=== PATIENT | male | born 1995 | race Caucasian/White ===

== ENCOUNTER 2017-10-17 20:00 | Emergency (ER) | payer BC, MEDICAID ==
[~2017-10-17] VITALS: Ht 170.2 cm; Wt 107.5 kg
[2017-10-17 20:19] VITALS: Ht 170.2 cm; Wt 107.5 kg
[2017-10-17 21:16] VITALS: BP 122/79
== END 2017-10-17 21:17 | disposition home or self-care (01) ==
LOC: ED 20:00
DX: Z00.01 Encounter for general adult medical examination with abnormal findings (principal); R11.10 Vomiting, unspecified

== ENCOUNTER 2017-10-17 23:40 | Emergency (ER) | payer BC, MEDICAID ==
[2017-10-18 00:39] LABS: CALCIUM 7.9 mg/dL (8.5-10.1); CARBON DIOXIDE 26.9 mmol/L (21-32); CHLORIDE SERUM 101 mmol/L (98-107); CREATININE SERUM 0.8 mg/dL (0.7-1.3); GFR1 > 60 mL/min; GLUCOSE SERUM 105 mg/dL (74-106); POTASSIUM SERUM 3.7 mmol/L (3.5-5.1); SODIUM SERUM 137 mmol/L (136-145)
[2017-10-18 00:43] LABS: ALBUMIN 3.8 g/dL (3.4-5.0); ALKALINE PHOSPHATASE 88 U/L (46-116); ALT/SGPT 70 U/L (16-63); BILIRUBIN TOTAL 0.1 mg/dL (0.20-1.00); TOTAL PROTEIN, SERUM 7.3 g/dL (6.4-8.2)
[2017-10-18 00:44] LABS: BASOPHIL % 0.3 % (0-2); PLATELET COUNT 350 x10^3mcL (130-400)
[2017-10-18 01:00] LABS: AST/SGOT 28 U/L (15-37)
[2017-10-18 01:02] LABS: RED CELL DISTRIBUTION WIDTH 14.6 % (11.5-14.5)
[2017-10-18 01:10] LABS: AMPHETAMINE QUAL UR NONE DETECTED (See below)
[2017-10-18 05:55] VITALS: BP 133/79
== END 2017-10-18 05:58 | disposition home or self-care (01) ==
LOC: ED 23:40
PROVIDERS: Emergency Medicine
DX: F19.10 Other psychoactive substance abuse, uncomplicated (principal); R45.851 Suicidal ideations
CPT/HCPCS: 36415; G0480

== ENCOUNTER 2017-11-03 16:24 | Emergency (ER) | payer BC, MEDICAID ==
[~2017-11-03] VITALS: Ht 170.2 cm; Wt 112.0 kg
[2017-11-03 16:47] VITALS: BP 113/49; Ht 170.2 cm; Wt 112.0 kg
[2017-11-03 18:32] LABS: microscopic required? NO
[2017-11-03 18:34] LABS: CALCIUM 8.9 mg/dL (8.5-10.1); CARBON DIOXIDE 31.4 mmol/L (21-32); CHLORIDE SERUM 102 mmol/L (98-107); CREATININE SERUM 0.9 mg/dL (0.7-1.3); GFR1 > 60 mL/min; GLUCOSE SERUM 87 mg/dL (74-106); POTASSIUM SERUM 3.7 mmol/L (3.5-5.1); SODIUM SERUM 138 mmol/L (136-145)
[2017-11-03 18:35] LABS: UA SPECIFIC GRAVITY <=1.005 (1.005-1.035); urine erythrocyte NEGATIVE (NEGATIVE)
[2017-11-03 18:39] LABS: ALKALINE PHOSPHATASE 78 U/L (46-116); ALT/SGPT 91 U/L (16-63); AST/SGOT 29 U/L (15-37)
[2017-11-03 18:43] LABS: AMPHETAMINE QUAL UR NONE DETECTED (See below)
[2017-11-03 18:50] LABS: RED CELL DISTRIBUTION WIDTH 13.1 % (11.5-14.5)
[2017-11-03 19:00] LABS: BASOPHIL % 0.3 % (0-2); PLATELET COUNT 375 x10^3mcL (130-400)
== END 2017-11-03 19:10 | disposition home or self-care (01) ==
LOC: ED 16:24
PROVIDERS: Emergency Medicine
DX: D72.829 Elevated white blood cell count, unspecified (principal); R11.10 Vomiting, unspecified; F17.210 Nicotine dependence, cigarettes, uncomplicated; F20.9 Schizophrenia, unspecified; F32.9 Major depressive disorder, single episode, unspecified; Z71.6 Tobacco abuse counseling
CPT/HCPCS: 36415; 99406; G0480; Q0162

== ENCOUNTER 2018-09-07 18:51 | Emergency (ER) | payer MEDICAID ==
[~2018-09-07] VITALS: Ht 170.2 cm; Wt 103.0 kg
[2018-09-07 18:54] VITALS: Ht 170.2 cm; Wt 103.0 kg
[2018-09-07 20:33] VITALS: BP 143/97
== END 2018-09-07 20:33 | disposition home or self-care (01) ==
LOC: ED 18:51
DX: F20.0 Paranoid schizophrenia (principal); F12.90 Cannabis use, unspecified, uncomplicated; F15.90 Other stimulant use, unspecified, uncomplicated; F32.9 Major depressive disorder, single episode, unspecified; F17.210 Nicotine dependence, cigarettes, uncomplicated

== ENCOUNTER 2018-09-12 20:59 | Emergency (ER) | payer MEDICAID ==
[~2018-09-12] VITALS: Ht 170.2 cm; Wt 103.9 kg
[2018-09-12 21:51] VITALS: BP 146/88; Ht 170.2 cm; Wt 103.9 kg
== END 2018-09-13 01:32 | disposition left against medical advice (07) ==
LOC: ED 20:59
DX: Z53.21 Procedure and treatment not carried out due to patient leaving prior to being seen by health care provider (principal)

== ENCOUNTER 2018-09-14 22:21 | Emergency (ER) | payer MEDICAID ==
[~2018-09-14] VITALS: Ht 170.2 cm; Wt 107.0 kg
[2018-09-14 23:10] VITALS: Ht 170.2 cm; Wt 107.0 kg
[2018-09-15 00:37] VITALS: BP 125/76
== END 2018-09-15 00:37 | disposition home or self-care (01) ==
LOC: ED 22:21
DX: R44.0 Auditory hallucinations (principal); F41.9 Anxiety disorder, unspecified; F32.9 Major depressive disorder, single episode, unspecified; F17.210 Nicotine dependence, cigarettes, uncomplicated

== ENCOUNTER 2018-09-17 20:06 | Emergency (ER) | payer MEDICAID ==
[~2018-09-17] VITALS: Ht 170.2 cm; Wt 105.7 kg
[2018-09-17 20:19] VITALS: Ht 170.2 cm; Wt 105.7 kg
[2018-09-17 23:06] VITALS: BP 116/63
== END 2018-09-17 23:06 | disposition home or self-care (01) ==
LOC: ED 20:06
DX: R44.0 Auditory hallucinations (principal); R44.1 Visual hallucinations; F32.9 Major depressive disorder, single episode, unspecified; F17.210 Nicotine dependence, cigarettes, uncomplicated; Z76.0 Encounter for issue of repeat prescription; Z98.890 Other specified postprocedural states

== ENCOUNTER 2018-09-21 20:23 | Emergency (ER) | payer MEDICAID ==
[~2018-09-21] VITALS: Ht 170.2 cm; Wt 103.0 kg
[2018-09-21 20:30] VITALS: Ht 170.2 cm; Wt 103.0 kg
[2018-09-22 06:12] VITALS: BP 111/62
== END 2018-09-22 06:12 | disposition home or self-care (01) ==
LOC: ED 20:23
DX: F15.129 Other stimulant abuse with intoxication, unspecified (principal); F19.10 Other psychoactive substance abuse, uncomplicated; F32.9 Major depressive disorder, single episode, unspecified; F20.9 Schizophrenia, unspecified
CPT/HCPCS: J2060

== ENCOUNTER 2018-09-26 17:13 | Emergency (ER) | payer MEDICAID ==
[~2018-09-26] VITALS: Ht 170.2 cm; Wt 104.3 kg
[2018-09-26 17:24] VITALS: Ht 170.2 cm; Wt 104.3 kg
[2018-09-26 18:30] LABS: BASOPHIL % 0.2 % (0-2); PLATELET COUNT 331 x10^3mcL (130-400)
[2018-09-26 18:33] LABS: CALCIUM 9.1 mg/dL (8.5-10.1); CARBON DIOXIDE 30.9 mmol/L (21-32); CHLORIDE SERUM 103 mmol/L (98-107); GFR1 > 60 mL/min; GLUCOSE SERUM 105 mg/dL (74-106); POTASSIUM SERUM 3.5 mmol/L (3.5-5.1); RED CELL DISTRIBUTION WIDTH 15.5 % (11.5-14.5); SODIUM SERUM 141 mmol/L (136-145)
[2018-09-26 18:36] LABS: microscopic required? NO
[2018-09-26 18:46] LABS: UA SPECIFIC GRAVITY <=1.005 (1.005-1.035); urine erythrocyte NEGATIVE (NEGATIVE)
[2018-09-26 18:46] LABS: ALBUMIN 3.7 g/dL (3.4-5.0); ALKALINE PHOSPHATASE 56 U/L (46-116); ALT/SGPT 68 U/L (16-63); AST/SGOT 24 U/L (15-37); BILIRUBIN TOTAL 0.3 mg/dL (0.20-1.00); TOTAL PROTEIN, SERUM 7.1 g/dL (6.4-8.2)
[2018-09-26 19:01] LABS: AMPHETAMINE QUAL UR NONE DETECTED (See below)
[2018-09-26 21:18] VITALS: BP 133/76
== END 2018-09-26 22:09 | disposition home or self-care (01) ==
LOC: ED 17:13
PROVIDERS: Emergency Medicine
DX: F28 Other psychotic disorder not due to a substance or known physiological condition (principal); F15.10 Other stimulant abuse, uncomplicated; F20.9 Schizophrenia, unspecified; F32.9 Major depressive disorder, single episode, unspecified; Z98.890 Other specified postprocedural states
CPT/HCPCS: 36415; 84439; G0480

== ENCOUNTER 2018-10-08 22:06 | Emergency (ER) | payer MEDICAID ==
[~2018-10-08] VITALS: Ht 170.2 cm; Wt 103.0 kg
[2018-10-08 22:15] VITALS: Ht 170.2 cm; Wt 103.0 kg
[2018-10-09 01:08] LABS: BASOPHIL % 0.5 % (0-2); PLATELET COUNT 333 x10^3mcL (130-400)
[2018-10-09 01:20] LABS: RED CELL DISTRIBUTION WIDTH 14.8 % (11.5-14.5)
[2018-10-09 01:25] LABS: CALCIUM 9.5 mg/dL (8.5-10.1); CARBON DIOXIDE 28.3 mmol/L (21-32); CHLORIDE SERUM 103 mmol/L (98-107); GFR1 > 60 mL/min; GLUCOSE SERUM 87 mg/dL (74-106); POTASSIUM SERUM 3.7 mmol/L (3.5-5.1); SODIUM SERUM 141 mmol/L (136-145)
[2018-10-09 01:34] LABS: ALBUMIN 3.9 g/dL (3.4-5.0); ALKALINE PHOSPHATASE 68 U/L (46-116); ALT/SGPT 52 U/L (16-63); AST/SGOT 15 U/L (15-37); BILIRUBIN TOTAL 0.26 mg/dL (0.20-1.00); TOTAL PROTEIN, SERUM 7.6 g/dL (6.4-8.2)
[2018-10-09 03:25] LABS: AMPHETAMINE QUAL UR POSITIVE (See below)
[2018-10-09 06:02] VITALS: BP 107/78
== END 2018-10-09 06:02 | disposition home or self-care (01) ==
LOC: ED 22:06
PROVIDERS: Emergency Medicine
DX: R44.0 Auditory hallucinations (principal); F15.10 Other stimulant abuse, uncomplicated; F17.200 Nicotine dependence, unspecified, uncomplicated; Z98.890 Other specified postprocedural states
CPT/HCPCS: 36415; 99406; G0480

== ENCOUNTER 2018-12-02 01:51 | Emergency (ER) | payer SELFPAY ==
[~2018-12-02] VITALS: Ht 170.2 cm; Wt 96.8 kg
[2018-12-02 02:45] LABS: BASOPHIL % 0.4 % (0-2); PLATELET COUNT 318 x10^3mcL (130-400); RED CELL DISTRIBUTION WIDTH 13.4 % (11.5-14.5)
[2018-12-02 02:58] LABS: CALCIUM 8.3 mg/dL (8.5-10.1); CARBON DIOXIDE 28.5 mmol/L (21-32); CHLORIDE SERUM 105 mmol/L (98-107); GFR1 > 60 mL/min; GLUCOSE SERUM 77 mg/dL (74-106); POTASSIUM SERUM 3.1 mmol/L (3.5-5.1); SODIUM SERUM 143 mmol/L (136-145)
[2018-12-02 03:05] LABS: ALBUMIN 3.8 g/dL (3.4-5.0); ALKALINE PHOSPHATASE 69 U/L (46-116); ALT/SGPT 40 U/L (16-63); AST/SGOT 20 U/L (15-37); BILIRUBIN TOTAL 0.17 mg/dL (0.20-1.00); TOTAL PROTEIN, SERUM 7.2 g/dL (6.4-8.2)
[2018-12-02 05:46] LABS: AMPHETAMINE QUAL UR POSITIVE (See below)
[2018-12-02 08:38] VITALS: BP 115/73
== END 2018-12-02 08:38 | disposition home or self-care (01) ==
LOC: ED 01:51
PROVIDERS: Emergency Medicine
DX: R44.0 Auditory hallucinations (principal); Z98.890 Other specified postprocedural states
CPT/HCPCS: 36415; G0480

== ENCOUNTER 2018-12-29 20:16 | Emergency (ER) | payer MEDICAID ==
[~2018-12-29] VITALS: Ht 170.2 cm; Wt 90.7 kg
[2018-12-29 20:52] VITALS: BP 113/78
== END 2018-12-29 21:44 | disposition left against medical advice (07) ==
LOC: ED 20:16
DX: Z53.21 Procedure and treatment not carried out due to patient leaving prior to being seen by health care provider (principal)

== ENCOUNTER 2018-12-29 22:33 | Emergency (ER) | payer MEDICAID ==
[~2018-12-29] VITALS: Ht 170.2 cm; Wt 2.5 kg
[2018-12-29 22:37] VITALS: Ht 170.2 cm; Wt 2.5 kg
[2018-12-30 00:45] VITALS: BP 179/82
== END 2018-12-30 00:45 | disposition home or self-care (01) ==
LOC: ED 22:33
DX: R44.0 Auditory hallucinations (principal); Z76.0 Encounter for issue of repeat prescription

== ENCOUNTER 2019-02-10 17:27 | Emergency (ER) | payer MEDICAID ==
[~2019-02-10] VITALS: Ht 170.2 cm; Wt 92.5 kg
[2019-02-10 17:49] VITALS: Ht 170.2 cm; Wt 92.5 kg
[2019-02-10 23:27] LABS: BASOPHIL % 0.5 % (0-2); PLATELET COUNT 395 x10^3mcL (130-400); RED CELL DISTRIBUTION WIDTH 14.3 % (11.5-14.5)
[2019-02-10 23:34] LABS: CALCIUM 9.1 mg/dL (8.5-10.1); CARBON DIOXIDE 29.1 mmol/L (21-32); CHLORIDE SERUM 103 mmol/L (98-107); GFR1 > 60 mL/min; GLUCOSE SERUM 99 mg/dL (74-106); POTASSIUM SERUM 3.5 mmol/L (3.5-5.1); SODIUM SERUM 141 mmol/L (136-145)
[2019-02-10 23:38] LABS: ALBUMIN 4.4 g/dL (3.4-5.0); ALKALINE PHOSPHATASE 69 U/L (46-116); ALT/SGPT 35 U/L (16-63); AST/SGOT 13 U/L (15-37); BILIRUBIN TOTAL 0.26 mg/dL (0.20-1.00)
[2019-02-10 23:39] LABS: TOTAL PROTEIN, SERUM 8.6 g/dL (6.4-8.2)
[2019-02-11 00:30] LABS: AMPHETAMINE QUAL UR POSITIVE (See below)
[2019-02-11 05:10] VITALS: BP 112/74
== END 2019-02-11 06:50 | disposition left against medical advice (07) ==
LOC: ED 17:27
PROVIDERS: Emergency Medicine
DX: F15.10 Other stimulant abuse, uncomplicated (principal); F32.9 Major depressive disorder, single episode, unspecified; Z98.890 Other specified postprocedural states
CPT/HCPCS: 36415; G0480

== ENCOUNTER 2019-02-12 16:46 | Emergency (ER) | payer MEDICAID | END 2019-02-12 18:26 | disposition left against medical advice (07) | LOC: ED 16:46 | DX: Z53.21 Procedure and treatment not carried out due to patient leaving prior to being seen by health care provider (principal) ==

== ENCOUNTER 2019-02-18 18:11 | Emergency (ER) | payer MEDICAID | END 2019-02-18 19:17 | disposition left against medical advice (07) | LOC: ED 18:11 | DX: Z53.21 Procedure and treatment not carried out due to patient leaving prior to being seen by health care provider (principal) ==

== ENCOUNTER 2019-02-19 02:27 | Emergency (ER) | payer MEDICAID ==
[~2019-02-19] VITALS: Ht 170.2 cm; Wt 95.3 kg
[2019-02-19 02:45] VITALS: Ht 170.2 cm; Wt 95.3 kg
[2019-02-19 04:33] VITALS: BP 117/47
== END 2019-02-19 04:33 | disposition home or self-care (01) ==
LOC: ED 02:27
DX: R10.816 Epigastric abdominal tenderness (principal); F41.9 Anxiety disorder, unspecified
CPT/HCPCS: Q0162

== ENCOUNTER 2019-02-27 16:43 | Emergency (ER) | payer MEDICAID ==
[~2019-02-27] VITALS: Ht 170.2 cm; Wt 98.0 kg
[2019-02-27 16:48] VITALS: Ht 170.2 cm; Wt 98.0 kg
[2019-02-27 17:31] LABS: BASOPHIL % 0.5 % (0-2); PLATELET COUNT 346 x10^3mcL (130-400)
[2019-02-27 17:39] LABS: CHLORIDE SERUM 101 mmol/L (98-107); CREATININE SERUM 0.9 mg/dL (0.7-1.3); GFR1 > 60 mL/min; GLUCOSE SERUM 108 mg/dL (74-106); POTASSIUM SERUM 3.9 mmol/L (3.5-5.1); SODIUM SERUM 141 mmol/L (136-145)
[2019-02-27 17:39] LABS: microscopic required? NO
[2019-02-27 17:43] LABS: ALBUMIN 4.2 g/dL (3.4-5.0); ALKALINE PHOSPHATASE 66 U/L (46-116); ALT/SGPT 141 U/L (16-63); AST/SGOT 44 U/L (15-37); BILIRUBIN TOTAL 0.2 mg/dL (0.20-1.00)
[2019-02-27 17:49] LABS: TOTAL PROTEIN, SERUM 8.5 g/dL (6.4-8.2)
[2019-02-27 17:57] LABS: urine erythrocyte NEGATIVE (NEGATIVE)
[2019-02-27 18:13] LABS: AMPHETAMINE QUAL UR POSITIVE (See below)
--- NOTE | 2019-02-28 07:29 | NUR ---
[facility] to continue actively working on placement. Will contact with any updates. 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
--- NOTE | 2019-02-28 08:34 | NUR ---
Received call from [facility] include [facility] beds at the [facility] requesting pt status. Relayed info and transferred to ER for clinical information.
--- NOTE | 2019-02-28 09:45 | NUR ---
Received a call from Thelma at [facility]. Pt has been accepted under Dr. Caballero to [facility] bed #9[facility]B. Address is [address] [place] [address]. For report please call and ask for [facility] ([facility]
[2019-02-28 11:11] VITALS: BP 118/82
== END 2019-02-28 11:11 | disposition short-term general hospital (02) ==
LOC: ED 16:43
PROVIDERS: Emergency Medicine
DX: R45.851 Suicidal ideations (principal); F15.10 Other stimulant abuse, uncomplicated
CPT/HCPCS: 36415; 82962; G0480; J7030; Q0177

== ENCOUNTER 2019-03-14 17:33 | Emergency (ER) | payer MEDICAID ==
[~2019-03-14] VITALS: Ht 170.2 cm; Wt 97.5 kg
[2019-03-14 17:43] VITALS: Ht 170.2 cm; Wt 97.5 kg
[2019-03-14 20:14] VITALS: BP 116/69
== END 2019-03-14 20:14 | disposition home or self-care (01) ==
LOC: ED 17:33
DX: R11.10 Vomiting, unspecified (principal); F41.9 Anxiety disorder, unspecified; F32.9 Major depressive disorder, single episode, unspecified

== ENCOUNTER 2019-06-29 18:52 | Emergency (ER) | payer MEDICAID ==
[~2019-06-29] VITALS: Ht 170.2 cm; Wt 98.0 kg
[2019-06-29 18:57] VITALS: Ht 170.2 cm; Wt 98.0 kg
[2019-06-29 21:28] LABS: BASOPHIL % 0.7 % (0-2); PLATELET COUNT 372 x10^3mcL (130-400); RED CELL DISTRIBUTION WIDTH 13.9 % (11.5-14.5)
[2019-06-29 21:39] LABS: CALCIUM 9.3 mg/dL (8.5-10.1); CHLORIDE SERUM 102 mmol/L (98-107); GFR1 > 60 mL/min; GLUCOSE SERUM 97 mg/dL (74-106); SODIUM SERUM 137 mmol/L (136-145)
[2019-06-29 21:43] LABS: ALBUMIN 3.9 g/dL (3.4-5.0); ALKALINE PHOSPHATASE 67 U/L (46-116); ALT/SGPT 42 U/L (16-63); AMYLASE 38 U/L (25-115); AST/SGOT 17 U/L (15-37); BILIRUBIN TOTAL 0.18 mg/dL (0.20-1.00); LIPASE 84 IU/L (73-393); TOTAL PROTEIN, SERUM 7.9 g/dL (6.4-8.2)
[2019-06-30 02:42] VITALS: BP 106/62
== END 2019-06-30 01:00 | disposition home or self-care (01) ==
LOC: ED 18:52
PROVIDERS: Emergency Medicine
DX: A08.4 Viral intestinal infection, unspecified (principal); Z59.0 Homelessness
CPT/HCPCS: J1885; J2405; J7030

== ENCOUNTER 2019-09-20 01:15 | Emergency (ER) | payer MEDICAID ==
[~2019-09-20] VITALS: Ht 170.2 cm; Wt 99.1 kg
[2019-09-20 01:32] VITALS: Ht 170.2 cm; Wt 99.1 kg
[2019-09-20 02:42] VITALS: BP 109/60
== END 2019-09-20 02:42 | disposition home or self-care (01) ==
LOC: ED 01:15
DX: L84 Corns and callosities (principal); F15.10 Other stimulant abuse, uncomplicated; Z98.890 Other specified postprocedural states; Z59.0 Homelessness
CPT/HCPCS: J1885

== ENCOUNTER 2019-10-18 20:13 | Emergency (ER) | payer MEDICAID ==
[~2019-10-18] VITALS: Ht 170.2 cm; Wt 98.0 kg
[2019-10-18 20:16] VITALS: BP 141/87; Ht 170.2 cm; Wt 98.0 kg
== END 2019-10-18 20:52 | disposition home or self-care (01) ==
LOC: ED 20:13
DX: F41.9 Anxiety disorder, unspecified (principal); F15.10 Other stimulant abuse, uncomplicated; F12.10 Cannabis abuse, uncomplicated; Z98.890 Other specified postprocedural states

== ENCOUNTER 2019-10-19 01:06 | Emergency (ER) | payer MEDICAID ==
[~2019-10-19] VITALS: Ht 170.2 cm; Wt 100.2 kg
[2019-10-19 01:15] VITALS: Ht 170.2 cm; Wt 100.2 kg
[2019-10-19 02:19] VITALS: BP 124/82
== END 2019-10-19 02:19 | disposition home or self-care (01) ==
LOC: ED 01:06
DX: R51 Headache (principal); Z76.0 Encounter for issue of repeat prescription

== ENCOUNTER 2019-10-31 20:28 | Emergency (ER) | payer MEDICAID ==
[~2019-10-31] VITALS: Ht 170.2 cm; Wt 102.1 kg
[2019-10-31 20:36] VITALS: Ht 170.2 cm; Wt 102.1 kg
[2019-10-31 21:33] LABS: BASOPHIL % 0.2 % (0-2); PLATELET COUNT 324 x10^3mcL (130-400)
[2019-10-31 21:34] LABS: RED CELL DISTRIBUTION WIDTH 15.3 % (11.5-14.5)
[2019-10-31 21:45] LABS: ALBUMIN 3.4 g/dL (3.4-5.0); ALKALINE PHOSPHATASE 64 U/L (46-116); ALT/SGPT 87 U/L (16-63); AST/SGOT 27 U/L (15-37); BILIRUBIN TOTAL 0.14 mg/dL (0.20-1.00); CALCIUM 7.9 mg/dL (8.5-10.1); CARBON DIOXIDE 28.3 mmol/L (21-32); CHLORIDE SERUM 102 mmol/L (98-107); CREATININE SERUM 0.9 mg/dL (0.7-1.3); GFR1 > 60 mL/min; GLUCOSE SERUM 242 mg/dL (74-106); LIPASE 109 IU/L (73-393); POTASSIUM SERUM 3.7 mmol/L (3.5-5.1); SODIUM SERUM 139 mmol/L (136-145); TOTAL PROTEIN, SERUM 6.5 g/dL (6.4-8.2)
[2019-10-31 21:59] LABS: BILIRUBIN DIRECT 0.02 mg/dL (0.0-0.2)
[2019-11-01 05:22] VITALS: BP 119/85
== END 2019-11-01 05:48 | disposition home or self-care (01) ==
LOC: ED 20:28
PROVIDERS: Student in an Organized Health Care Education/Training Program
DX: D72.829 Elevated white blood cell count, unspecified (principal); R44.0 Auditory hallucinations; R10.9 Unspecified abdominal pain

== ENCOUNTER 2019-11-01 20:17 | Emergency (ER) | payer MEDICAID, SELFPAY ==
[~2019-11-01] VITALS: Ht 170.2 cm; Wt 102.1 kg
[2019-11-01 20:19] VITALS: Ht 170.2 cm; Wt 102.1 kg
[2019-11-01 22:13] VITALS: BP 143/88
== END 2019-11-01 22:13 | disposition home or self-care (01) ==
LOC: ED 20:17
DX: F20.9 Schizophrenia, unspecified (principal); R10.9 Unspecified abdominal pain; Z20.828 Contact with and (suspected) exposure to other viral communicable diseases
CPT/HCPCS: U0003-CS

== ENCOUNTER 2019-11-04 22:21 | Emergency (ER) | payer MEDICAID ==
[~2019-11-04] VITALS: Ht 170.2 cm; Wt 103.0 kg
[2019-11-04 22:26] VITALS: Ht 170.2 cm; Wt 103.0 kg
[2019-11-05 01:37] VITALS: BP 113/72
== END 2019-11-05 01:37 | disposition home or self-care (01) ==
LOC: ED 22:21
DX: F15.10 Other stimulant abuse, uncomplicated (principal); F41.9 Anxiety disorder, unspecified; F10.129 Alcohol abuse with intoxication, unspecified; Z98.890 Other specified postprocedural states

== ENCOUNTER 2019-11-15 21:24 | Emergency (ER) | payer MEDICAID ==
[~2019-11-15] VITALS: Ht 172.7 cm; Wt 98.4 kg
[2019-11-15 21:29] VITALS: Ht 172.7 cm; Wt 98.4 kg
[2019-11-16 01:59] LABS: BASOPHIL % 0.6 % (0-2); PLATELET COUNT 336 x10^3mcL (130-400); RED CELL DISTRIBUTION WIDTH 16.3 % (11.5-14.5)
[2019-11-16 02:01] LABS: UA SPECIFIC GRAVITY >=1.030 (1.005-1.035); microscopic required? YES; urine erythrocyte NEGATIVE (NEGATIVE)
[2019-11-16 02:10] LABS: CALCIUM 8.9 mg/dL (8.5-10.1); CARBON DIOXIDE 27.9 mmol/L (21-32); CHLORIDE SERUM 100 mmol/L (98-107); CREATININE SERUM 1.2 mg/dL (0.7-1.3); GFR1 > 60 mL/min; GLUCOSE SERUM 143 mg/dL (74-106); POTASSIUM SERUM 3.3 mmol/L (3.5-5.1); SODIUM SERUM 137 mmol/L (136-145)
[2019-11-16 02:15] LABS: ALKALINE PHOSPHATASE 66 U/L (46-116); ALT/SGPT 77 U/L (16-63); AST/SGOT 26 U/L (15-37); BILIRUBIN TOTAL 0.27 mg/dL (0.20-1.00); TOTAL PROTEIN, SERUM 7.8 g/dL (6.4-8.2)
[2019-11-16 04:25] LABS: AMPHETAMINE QUAL UR POSITIVE (See below)
[2019-11-16 16:42] VITALS: BP 121/76
== END 2019-11-16 16:42 | disposition home or self-care (01) ==
LOC: ED 21:24
PROVIDERS: Emergency Medicine
DX: R45.851 Suicidal ideations (principal); F20.9 Schizophrenia, unspecified; F19.10 Other psychoactive substance abuse, uncomplicated; Z20.828 Contact with and (suspected) exposure to other viral communicable diseases
CPT/HCPCS: G0480; U0003-CS

== ENCOUNTER 2019-12-06 01:55 | Emergency (ER) | payer MEDICAID ==
[~2019-12-06] VITALS: Ht 170.2 cm; Wt 102.1 kg
[2019-12-06 02:04] VITALS: Ht 170.2 cm; Wt 102.1 kg
[2019-12-06 04:48] LABS: BASOPHIL % 0.2 % (0-2); PLATELET COUNT 299 x10^3mcL (130-400)
[2019-12-06 04:49] LABS: RED CELL DISTRIBUTION WIDTH 15.4 % (11.5-14.5)
[2019-12-06 04:58] LABS: CALCIUM 8.9 mg/dL (8.5-10.1); CARBON DIOXIDE 28.3 mmol/L (21-32); CHLORIDE SERUM 99 mmol/L (98-107); CREATININE SERUM 0.8 mg/dL (0.7-1.3); GFR1 > 60 mL/min; GLUCOSE SERUM 96 mg/dL (74-106); POTASSIUM SERUM 3.8 mmol/L (3.5-5.1); SODIUM SERUM 136 mmol/L (136-145)
[2019-12-06 05:04] LABS: ALBUMIN 3.9 g/dL (3.4-5.0); ALKALINE PHOSPHATASE 53 U/L (46-116); ALT/SGPT 116 U/L (16-63); AST/SGOT 35 U/L (15-37); BILIRUBIN TOTAL 0.3 mg/dL (0.20-1.00); TOTAL PROTEIN, SERUM 7.4 g/dL (6.4-8.2)
[2019-12-06 06:02] LABS: AMPHETAMINE QUAL UR POSITIVE (See below)
[2019-12-06 08:21] VITALS: BP 127/83
== END 2019-12-06 08:21 | disposition home or self-care (01) ==
LOC: ED 01:55
PROVIDERS: Student in an Organized Health Care Education/Training Program
DX: R44.0 Auditory hallucinations (principal); Z91.5 Personal history of self-harm; Z20.828 Contact with and (suspected) exposure to other viral communicable diseases
CPT/HCPCS: G0480; U0003-CS

== ENCOUNTER 2019-12-16 19:38 | Emergency (ER) | payer MEDICAID ==
[~2019-12-16] VITALS: Ht 170.2 cm; Wt 102.2 kg
[2019-12-16 19:55] VITALS: Ht 170.2 cm; Wt 102.2 kg
[2019-12-16 21:23] VITALS: BP 144/89
== END 2019-12-16 21:23 | disposition home or self-care (01) ==
LOC: ED 19:38
DX: F41.9 Anxiety disorder, unspecified (principal); F15.10 Other stimulant abuse, uncomplicated; Z98.890 Other specified postprocedural states
CPT/HCPCS: 99406; Q0163

== ENCOUNTER 2019-12-30 03:30 | Emergency (ER) | payer MEDICAID ==
[~2019-12-30] VITALS: Ht 170.2 cm; Wt 99.3 kg
[2019-12-30 04:16] VITALS: Ht 170.2 cm; Wt 99.3 kg
[2019-12-30 06:42] VITALS: BP 118/80
== END 2019-12-30 06:42 | disposition home or self-care (01) ==
LOC: ED 03:30
DX: S39.012A Strain of muscle, fascia and tendon of lower back, initial encounter (principal); G47.00 Insomnia, unspecified; F15.10 Other stimulant abuse, uncomplicated; X58.XXXA Exposure to other specified factors, initial encounter; Y93.89 Activity, other specified; Y92.89 Other specified places as the place of occurrence of the external cause; Y99.8 Other external cause status